=== PATIENT | female | born 1990 | race Caucasian/White ===

== ENCOUNTER → 2017-01-10 | Outpatient (REF) | payer BC ==
[~2017-01-10] MED LIST: MOTR200T44 PO; TYLE325T5 PO; VITAPRTA PO
[2017-01-10 20:13] LABS: HCG, SERUM QUANTITATIVE 47709 MIU/ML
[2017-01-10 21:21] LABS: MEAN CORPUSCULAR HEMOGLOBIN 30.1 pg (27.0-33.0); MEAN CORPUSCULAR HGB CONC 33.4 g/dl (32.0-36.5); MEAN CORPUSCULAR VOLUME 90.3 fl (80.0-96.0); RED CELL DISTRIBUTION WIDTH 12.4 % (11.5-14.5); WHITE BLOOD COUNT 7.7 K/mm3 (4.0-10.0)
== END ==
LOC: M LAB REF 17:07
PROVIDERS: ATTEND Obstetrics & Gynecology
DX: O36.80X0 Pregnancy with inconclusive fetal viability, not applicable or unspecified (principal); Z36 Encounter for antenatal screening of mother; Z3A.00 Weeks of gestation of pregnancy not specified

== ENCOUNTER → 2017-05-30 | Outpatient (CLI) | payer BC ==
[2017-05-30 12:20] LABS: MEAN CORPUSCULAR HEMOGLOBIN 29.8 pg (27.0-33.0); MEAN CORPUSCULAR HGB CONC 32.9 g/dl (32.0-36.5); MEAN CORPUSCULAR VOLUME 90.7 fl (80.0-96.0); PLATELET COUNT, AUTOMATED 233 10^3/uL (150-450); WHITE BLOOD COUNT 9.5 10^3/uL (4.0-10.0)
== END ==
LOC: M LAB 10:25
PROVIDERS: ATTEND Obstetrics & Gynecology
DX: Z34.82 Encounter for supervision of other normal pregnancy, second trimester (principal)

== ENCOUNTER → 2017-07-18 | Outpatient (REF) | payer BC | LOC: M LAB REF 17:38 | DX: Z34.83 Encounter for supervision of other normal pregnancy, third trimester (principal) ==

== ENCOUNTER 2017-07-31 18:13 | Outpatient (CLI) | payer BC | END 2017-07-31 19:10 | disposition home or self-care (01) | LOC: M LDO 18:13 | DX: O36.8130 Decreased fetal movements, third trimester, not applicable or unspecified (principal); Z3A.30 30 weeks gestation of pregnancy | CPT/HCPCS: 59025 ==

== ENCOUNTER → 2017-08-15 | Outpatient (REF) | payer BC ==
[2017-08-15 18:35] LABS: ALT/SGPT 22 U/L (12-78); AST/SGOT 21 U/L (7-37); BILIRUBIN,TOTAL 0.5 MG/DL (0.2-1.0); CREATININE FOR GFR 0.69 MG/DL (0.55-1.30); GLOMERULAR FILTRATION RATE > 60.0 (>60); LDH LACTATE DEHYDROGENASE 174 U/L (84-246); URIC ACID 6.2 MG/DL (2.6-6.0)
[2017-08-15 18:56] LABS: HEMATOCRIT 40.6 % (36.0-47.0); HEMOGLOBIN 13.4 g/dl (12.0-16.0); MEAN CORPUSCULAR HEMOGLOBIN 29.6 pg (27.0-33.0); MEAN CORPUSCULAR VOLUME 89.8 fl (80.0-96.0); PLATELET COUNT, AUTOMATED 209 10^3/uL (150-450); RED BLOOD COUNT 4.52 10^6/uL (4.00-5.40); RED CELL DISTRIBUTION WIDTH 13.4 % (11.5-14.5); WHITE BLOOD COUNT 9.1 10^3/uL (4.0-10.0)
== END ==
LOC: M LAB REF 17:11
DX: O26.893 Other specified pregnancy related conditions, third trimester (principal); R03.0 Elevated blood-pressure reading, without diagnosis of hypertension; Z3A.38 38 weeks gestation of pregnancy
CPT/HCPCS: 84460

== ENCOUNTER 2017-08-16 15:33 | Inpatient (IN) | payer BC ==
[2017-08-16] MEDS: PENICILLIN G POTASSIUM IV 5 MU in D5W MINI-BAG PLUS 100 ML IV (17:10)
[2017-08-16] MEDS: miSOPROStol 50 MCG 1/2 TAB (S0191) PO (17:14)
[2017-08-16 17:17] LABS: HEMATOCRIT 38.8 % (36.0-47.0); HEMOGLOBIN 13.1 g/dl (12.0-16.0); MEAN CORPUSCULAR HEMOGLOBIN 29.7 pg (27.0-33.0); MEAN CORPUSCULAR HGB CONC 33.8 g/dl (32.0-36.5); PLATELET COUNT, AUTOMATED 209 10^3/uL (150-450); RED BLOOD COUNT 4.41 10^6/uL (4.00-5.40); RED CELL DISTRIBUTION WIDTH 13.4 % (11.5-14.5); WHITE BLOOD COUNT 11.5 10^3/uL (4.0-10.0)
[2017-08-16 17:44] LABS: ALT/SGPT 22 U/L (12-78); AST/SGOT 20 U/L (7-37); BILIRUBIN,TOTAL 0.4 MG/DL (0.2-1.0); CREATININE FOR GFR 0.75 MG/DL (0.55-1.30); GLOMERULAR FILTRATION RATE > 60.0 (>60); LDH LACTATE DEHYDROGENASE 206 U/L (84-246); URIC ACID 6.1 MG/DL (2.6-6.0)
[2017-08-16 18:59] LABS: AMPHETAMINES URINE REFLEX NEGATIVE (NEGATIVE); BARBITURATES URINE REFLEX NEGATIVE (NEGATIVE); BENZODIAZEPINES URINE REFLEX NEGATIVE (NEGATIVE); CANNABINOIDS URINE REFLEX NEGATIVE (NEGATIVE); COCAINE METABOLITE URINE REFLE NEGATIVE (NEGATIVE); METHADONE URINE REFLEX NEGATIVE (NEGATIVE); OPIATES URINE REFLEX NEGATIVE (NEGATIVE); PHENCYCLIDINE URINE REFLEX NEGATIVE (NEGATIVE)
[2017-08-16] MEDS: PENICILLIN G POTASSIUM IV 2.5 MU in APPROPRIATE DILUENT 1 EA IV (21:37)
[2017-08-17 10:54] LABS: HEMATOCRIT 39.7 % (36.0-47.0); HEMOGLOBIN 13.5 g/dl (12.0-16.0); MEAN CORPUSCULAR HEMOGLOBIN 30.1 pg (27.0-33.0); MEAN CORPUSCULAR VOLUME 88.4 fl (80.0-96.0); PLATELET COUNT, AUTOMATED 214 10^3/uL (150-450); RED BLOOD COUNT 4.49 10^6/uL (4.00-5.40); RED CELL DISTRIBUTION WIDTH 13.5 % (11.5-14.5); WHITE BLOOD COUNT 11.9 10^3/uL (4.0-10.0)
[2017-08-17] MEDS: PENICILLIN G POTASSIUM IV 2.5 MU in APPROPRIATE DILUENT 1 EA IV ×2 (13:30→18:41)
[2017-08-17] MEDS: LACTATED RINGER'S 1000 ML IV (14:10)
[2017-08-17] MEDS ORDERED: FENTANYL 2MCG/ML ROPIVACAINE 0.2% IN 0.9% NACL 200ML IVBAG As Ordered (14:18)
[2017-08-17] MEDS ORDERED: FENTANYL/ROPIVACAINE/NACL BAG 200 ML EPIDURAL (14:35)
[2017-08-17] MEDS ORDERED: NALOXONE INJ 0.4 MG/1 ML VIAL (J2310) IV (14:35)
[2017-08-17] MEDS ORDERED: LACTATED RINGER'S 1000 ML IV (14:35)
[2017-08-17] MEDS ORDERED: ePHEDrine SULFATE 25 MG/5 ML(5MG/ML) SYRINGE IV (14:35)
[2017-08-17] MEDS ORDERED: EPIDURAL/PCA KEYS XX (14:35)
[2017-08-17] MEDS ORDERED: REFRIGERATOR IV KEYS XX (14:35)
[2017-08-17] MEDS ORDERED: EPIDURAL COMMENT XX (14:35)
[2017-08-17] MEDS ORDERED: diphenhydrAMINE INJ 50MG/ML VIAL (J1200) IV (14:35)
[2017-08-17] MEDS: ONDANSETRON 4MG/2ML VIAL (J2405) IV (16:33)
[2017-08-17] MEDS: OXYTOCIN DRIP 30 UNITS in APPROPRIATE DILUENT 1 EA IV (18:10)
[2017-08-17] MEDS: BICITRA 30ML SOLN UDC PO (18:59)
[2017-08-17] MEDS ORDERED: ACETAMINOPHEN 500 MG TAB PO (19:45)
[2017-08-17] MEDS ORDERED: DIBUCAINE 1% OINTMENT 30GM TOP (19:45)
[2017-08-17] MEDS ORDERED: ANUSOL HC CREAM 30GM TOP (19:45)
[2017-08-17] MEDS ORDERED: MEASLES,MUMPS,RUBELLA VACCINE INJ (MMR-II) (90707) SC (19:45)
[2017-08-17] MEDS ORDERED: DOCUSATE SODIUM 100 MG CAP PO (19:45)
[2017-08-17] MEDS ORDERED: METHYLERGONOVINE MALEATE 0.2 MG TAB PO (19:45)
[2017-08-17] MEDS ORDERED: RHOGAM 300 MCG (1500 IU) INJ (J2790) IM (19:45)
[2017-08-18] MEDS: IBUPROFEN 800 MG TAB PO (03:53)
[2017-08-18] MEDS: OXYTOCIN DRIP 30 UNITS in APPROPRIATE DILUENT 1 EA IV (06:03)
[2017-08-18 07:04] LABS: HEMATOCRIT 31.6 % (36.0-47.0); MEAN CORPUSCULAR HEMOGLOBIN 29.9 pg (27.0-33.0); MEAN CORPUSCULAR HGB CONC 33.5 g/dl (32.0-36.5); PLATELET COUNT, AUTOMATED 177 10^3/uL (150-450); RED BLOOD COUNT 3.55 10^6/uL (4.00-5.40); RED CELL DISTRIBUTION WIDTH 13.7 % (11.5-14.5); WHITE BLOOD COUNT 11.7 10^3/uL (4.0-10.0)
[2017-08-18 07:12] LABS: HEMOGLOBIN 10.6 g/dl (12.0-16.0)
[2017-08-18 07:29] LABS: ALT/SGPT 20 U/L (12-78); AST/SGOT 24 U/L (7-37); BILIRUBIN,TOTAL 0.6 MG/DL (0.2-1.0); CREATININE FOR GFR 0.87 MG/DL (0.55-1.30); GLOMERULAR FILTRATION RATE > 60.0 (>60); LDH LACTATE DEHYDROGENASE 174 U/L (84-246); URIC ACID 6.9 MG/DL (2.6-6.0)
[2017-08-18] MEDS: PRENATAL VITAMINS CHEWABLE TABLET PO (08:35)
[2017-08-19] MEDS: PRENATAL VITAMINS CHEWABLE TABLET PO (08:46)
== END 2017-08-19 19:00 | disposition home or self-care (01) | DRG 560 ==
LOC: M LDI 15:33 → M OBS 08-17 21:24
PROC: 3E0P7GC Introduction of Other Therapeutic Substance into Female Reproductive, Via Natural or Artificial Opening (ICD-10-PCS; 2017-08-16)
PROC: 10E0XZZ Delivery of Products of Conception, External Approach (ICD-10-PCS; principal; 2017-08-17)
PROC: 10907ZC Drainage of Amniotic Fluid, Therapeutic from Products of Conception, Via Natural or Artificial Opening (ICD-10-PCS; 2017-08-17)
DX: O14.93 Unspecified pre-eclampsia, third trimester (principal); Z3A.39 39 weeks gestation of pregnancy; O99.214 Obesity complicating childbirth; E66.9 Obesity, unspecified; O99.824 Streptococcus B carrier state complicating childbirth; Z68.39 Body mass index [BMI] 39.0-39.9, adult; O69.2XX0 Labor and delivery complicated by other cord entanglement, with compression, not applicable or unspecified; Z37.0 Single live birth

== ENCOUNTER → 2017-08-16 | Outpatient (REF) | payer BC ==
[2017-08-16 16:16] LABS: CREATININE, URINE 71.5 MG/DL; URINE TOTAL PROTEIN < 5.0 MG/DL (0-12)
[2017-08-16 21:26] LABS: CREATININE 24 HOUR, URINE 1501.5 MG/24HR (600-1800); TOTAL VOLUME, URINE 2100 ML
== END ==
LOC: M LAB REF 15:22
DX: R03.0 Elevated blood-pressure reading, without diagnosis of hypertension (principal)
CPT/HCPCS: 81050

== ENCOUNTER → 2022-08-24 | Outpatient (REF) | payer BC ==
[~2022-08-24] MED LIST changes: +IBUP-1114 PO; +MAPA500T2 PO; +ZANT150T40 PO
== END ==
LOC: M PLALAB 09:43
PROVIDERS: ATTEND Obstetrics & Gynecology
DX: Z12.4 Encounter for screening for malignant neoplasm of cervix (principal); Z77.9 Other contact with and (suspected) exposures hazardous to health
CPT/HCPCS: 87624; G0123

== ENCOUNTER → 2023-08-26 | Outpatient (CLI) | payer BC | LOC: M WHC 11:07 | PROVIDERS: ATTEND Nurse Practitioner Family | DX: N93.9 Abnormal uterine and vaginal bleeding, unspecified (principal) ==

== ENCOUNTER → 2025-05-13 | Outpatient (CLI) | payer BC ==
[2025-05-13 15:13] LABS: PLATELET COUNT, AUTOMATED 267 10^3/uL (150-450)
[2025-05-13 15:18] LABS: ALT/SGPT 48 U/L (7.0-40); AST/SGOT 28 U/L (<34); CALCIUM LEVEL 9.8 MG/DL (8.5-10.1); CARBON DIOXIDE LEVEL 25 MMOL/L (20-31); CHLORIDE LEVEL 107 MMOL/L (98-107); CHOLESTEROL LEVEL 171 MG/DL (<200); CHOLESTEROL RISK RATIO 2.73 (<5); CREATININE FOR GFR 0.84 MG/DL (0.55-1.30); FREE T4 1.20 NG/DL (0.89-1.76); GLOMERULAR FILTRATION RATE > 90.0 (>60); LDL CHOLESTEROL 92.2 MG/DL (<100); MAGNESIUM LEVEL 1.9 MG/DL (1.8-2.4); NON-HDL-C 108.4 MG/DL; POTASSIUM SERUM 4.0 MMOL/L (3.5-5.1); SODIUM LEVEL 142 MMOL/L (136-145); TRIGLYCERIDES LEVEL 81 MG/DL (<150)
[2025-05-13 15:20] LABS: TOTAL 25(OH) VITAMIN D 63.2 NG/ML (20.0-100.0)
== END ==
LOC: M WUC 09:34
PROVIDERS: ATTEND Registered Nurse
DX: Z00.00 Encounter for general adult medical examination without abnormal findings (principal); Z13.220 Encounter for screening for lipoid disorders; E55.9 Vitamin D deficiency, unspecified; R25.2 Cramp and spasm